=== PATIENT | male | born 1985 | race Caucasian/White ===

== ENCOUNTER 2017-05-13 12:36 | Day surgery (SDC) | payer BC, OTHER ==
[~2017-05-13] VITALS: Ht 177.8 cm; Wt 82.1 kg
[~2017-05-13 12:36] MED LIST: No meds per pt.
[2017-05-13] MEDS ORDERED: MIDAZOLAM 1 MG/ML, 2ML ONE (12:44)
[2017-05-13] MEDS ORDERED: FENTANYL PF 250 MCG/5ML ONE (12:45)
[2017-05-13] MEDS ORDERED: LACTATED RINGERS 1,000 ML IV SCH (12:48)
[2017-05-13 12:57] VITALS: BP 121/81
[2017-05-13] MEDS ORDERED: PLEASE ENTER HEIGHT AND WEIGHT MC SCH (13:00)
[2017-05-13] MEDS ORDERED: OXYcodone IR 5MG TABLET ONE (13:29)
[2017-05-13] MEDS ORDERED: GABAPENTIN 300 MG CAPSULE ONE ×2 (13:29→13:36)
[2017-05-13] MEDS ORDERED: ACETAMINOPHEN 500 MG TABLET PO ONE (13:30)
[2017-05-13] MEDS ORDERED: OXYcodone IR 5MG TABLET PO ONE (13:30)
[2017-05-13] MEDS ORDERED: GABAPENTIN 300 MG CAPSULE PO ONE (13:30)
[2017-05-13] MEDS ORDERED: ACETAMINOPHEN 500 MG TABLET ONE (13:30)
[2017-05-13] MEDS ORDERED: ROPIvacaine/PF 0.5%, 30 ML ONE (13:42)
[2017-05-13] MEDS ORDERED: LIDOCAINE 1%, 50ML ONE (13:42)
[2017-05-13] MEDS ORDERED: EPINEPHRINE 1 MG/ML, 1ML ONE (13:43)
[2017-05-13] MEDS ORDERED: ONDANSETRON 2MG/ML, 2ML ONE (14:00)
[2017-05-13] MEDS ORDERED: DEXAMETHASONE 4 MG/ML, 5ML ONE (14:00)
[2017-05-13] MEDS ORDERED: PROPOFOL 10 MG/ML, 20ML ONE (14:00)
[2017-05-13] MEDS ORDERED: KETOROLAC 30 MG/1 ML ONE (14:00)
[2017-05-13] MEDS ORDERED: CEFAZOLIN 1,000 MG ONE (14:00)
[2017-05-13] MEDS ORDERED: FENTANYL PF 100 MCG/2ML ONE (14:51)
[2017-05-13] MEDS ORDERED: MEPERIDINE/PF 25MG/0.5ML IVPush PRN (15:00)
[2017-05-13] MEDS ORDERED: HYDROcodone/APAP 7.5-325MG/15ML UDC PO PRN (15:00)
[2017-05-13] MEDS ORDERED: LORazepam 2 MG/ML, 1ML IVPush PRN (15:00)
[2017-05-13] MEDS ORDERED: ACETAMINOPHEN 325 MG TABLET PO PRN (15:00)
[2017-05-13] MEDS ORDERED: FENTANYL PF 100 MCG/2ML IV PRN (15:00)
[2017-05-13] MEDS ORDERED: OXYcodone 5 MG/5 ML ORAL.SOL UDC PO PRN (15:00)
[2017-05-13] MEDS ORDERED: ONDANSETRON 2MG/ML, 2ML IVPush PRN (15:00)
[2017-05-13] MEDS ORDERED: morphine SULFATE 10 MG/ML, 1ML IV PRN (15:00)
[2017-05-13] MEDS ORDERED: PROMETHAZINE 25 MG/ML, 1ML IV PRN (15:00)
[2017-05-13] MEDS ORDERED: MEPERIDINE/PF 50 MG/ML ONE (15:40)
[2017-05-13] MEDS ORDERED: ACETAMINOPHEN 650 MG/20.3 ML UDC ONE (16:20)
[2017-05-13] MEDS ORDERED: OXYcodone 5 MG/5 ML ORAL.SOL UDC ONE (16:20)
[2017-05-13] MEDS ORDERED: LABETALOL 5MG/ML, 20ML ONE (16:36)
[2017-05-13] MEDS ORDERED: LABETALOL 5MG/ML, 20ML IV PRN (17:00)
[2017-05-13] MEDS ORDERED: hydrALAzine 20 MG/ML, 1ML IV PRN (17:00)
== END 2017-05-13 17:40 ==
LOC: OUT 12:36
PROVIDERS: ATTEND Orthopaedic Surgery
DX: S83.281A Other tear of lateral meniscus, current injury, right knee, initial encounter (principal); S83.511A Sprain of anterior cruciate ligament of right knee, initial encounter; M65.861 Other synovitis and tenosynovitis, right lower leg; X58.XXXA Exposure to other specified factors, initial encounter; Y93.89 Activity, other specified; Y92.89 Other specified places as the place of occurrence of the external cause; Y99.8 Other external cause status
CPT/HCPCS: 29881; 29888; 73560; 76000; C1713; J0171; J0690; J1100; J1885; J2175; J2250; J2405; J2704; J2795; J3010; J3490; J7120